=== PATIENT | male | born 1985 | race Hispanic/Latino ===

== ENCOUNTER 2020-09-26 17:30 | Emergency (ER) | payer SELFPAY ==
[2020-09-26] MEDS ORDERED: ASPIRIN 81 MG TAB CHEW PO ONE (17:45)
[2020-09-26] MEDS ORDERED: LORazepam 2 MG/ML VIAL IV PRN ×2 (17:47)
[2020-09-26] MEDS ORDERED: ONDANSETRON 4 MG/2 ML INJ IV ONE ×2 (17:48→21:46)
--- NOTE | 2020-09-26 17:54 | Emergency Department Report ---
ED Chest Pain HPI - General Stated Complaint: CHEST PAIN Time Seen by Provider: 09/26/20 17:45 Source: patient - History of Present Illness Initial Comments: Patient is 35 years old male with history of hypertension and chronic al coholism. Patient brought to the emergency room via EMS from a local rehab center for evaluation of chest pain. Patient describes chest pain as sharp, diffuse with no radiation. Patient stated that he feels anxious. He stated that he is slightly nauseated. Patient is currently treated for alcohol abuse. Patient denied any fever or chills. No shortness of breath. MD Complaint: chest pain -: This afternoon Onset: during rest Pain Location: substernal Pain Radiation: none Severity: moderate Severity scale (0 -10): 6 Quality: sharp Consistency: intermittent re: nausea - Related Data Allergies Allergy/AdvReac Type Severity Reaction Status Date / Time aspirin Allergy Anaphylaxis Verified 09/26/20 18:02 Heart Score - HEART Score History: Slightly suspicious EKG: Normal Age: < 45 Risk factors: 1-2 risk factors Troponin: < normal limit HEART Score: 1 - EKG Read Time Time EKG Completed: 17:56 EKG Read Time: 17:57 - Critical Actions Critical Actions: 0-3 pts:0.9-1.7%risk of adverse cardiac event.Candidate for discharge ED Review of Systems ROS: Stated complaint: CHEST PAIN Other details as noted in HPI Comment: All other systems reviewed and negative Constitutional: denies: chills, fever ENT: denies: throat pain Cardiovascular: chest pain. denies: palpitations Gastrointestinal: nausea. denies: abdominal pain, vomiting Musculoskeletal: denies: back pain Neurological: denies: headache, weakness, numbness, paresthesias, confusion Psychiatric: anxiety, visual hallucinations. denies: depression, auditory hallucinations, homicidal thoughts, suicidal thoughts ED Past Medical Hx - Past Medical History Hx Hypertension: Yes ED Physical Exam - General General appearance: alert, in no apparent distress - Head Head exam: Present: atraumatic, normocephalic, normal inspection - Eye Eye exam: Present: normal appearance - ENT ENT exam: Present: normal exam, normal orophraynx, mucous membranes moist - Neck Neck exam: Present: normal inspection, full ROM. Absent: tenderness, meningismus - Respiratory Respiratory exam: Present: normal lung sounds bilaterally - Cardiovascular Cardiovascular Exam: Present: regular rate, normal rhythm, normal heart sounds - GI/Abdominal GI/Abdominal exam: Present: soft, normal bowel sounds. Absent: distended, t enderness, guarding, rebound, rigid, organomegaly, mass, bruit, pulsatile mass, hernia - Extremities Exam Extremities exam: Present: normal inspection, full ROM, normal capillary refill. Absent: tenderness - Back Exam Back exam: Present: normal inspection, full ROM. Absent: CVA tenderness (R), CVA tenderness (L) - Neurological Exam Neurological exam: Present: alert, oriented X3, CN II-XII intact, normal gait, reflexes normal. Absent: motor sensory deficit - Psychiatric Psychiatric exam: Present: normal mood - Skin Skin exam: Present: warm, intact, normal color ED Course Vital Signs 09/26/20 09/26/20 09/26/20 17:51 18:01 18:15 Pulse Rate 104 H 103 H 99 H Respiratory 15 15 Rate Blood Pressure 192/84 188/89 O2 Sat by Pulse 95 96 Oximetry 09/26/20 09/26/20 09/26/20 18:31 18:45 19:01 Pulse Rate 92 H 92 H 84 Respiratory 26 H 23 22 Rate Blood Pressure 154/99 130/112 124/70 O2 Sat by Pulse 97 96 94 Oximetry 09/26/20 09/26/20 09/26/20 19:15 19:45 20:01 Pulse Rate 90 91 H 93 H Respiratory 24 21 25 H Rate Blood Pressure 131/98 151/96 146/97 O2 Sat by Pulse 94 95 94 Oximetry 09/26/20 09/26/20 09/26/20 20:45 21:01 21:15 Pulse Rate 91 H 89 88 Respiratory 27 H 21 22 Rate Blood Pressure 150/94 146/86 129/77 O2 Sat by Pulse 95 98 96 Oximetry 09/26/20 09/26/20 09/26/20 21:31 21:45 22:01 Pulse Rate 87 85 86 Respiratory 25 H 24 24 Rate Blood Pressure 124/59 141/89 142/92 O2 Sat by Pulse 95 96 97 Oximetry 09/26/20 09/26/20 09/26/20 22:45 23:01 23:31 Pulse Rate 84 83 84 Respiratory 26 H 26 H 16 Rate Blood Pressure 137/86 142/88 142/98 O2 Sat by Pulse 95 97 98 Oximetry 09/27/20 09/27/20 00:15 00:31 Pulse Rate 87 79 Respiratory 19 16 Rate Blood Pressure 142/88 142/88 O2 Sat by Pulse 94 96 Oximetry ED Medical Decision Making - Lab Data Result diagrams: 09/26/20 17:53 09/26/20 17:53 - EKG Data -: EKG Interpreted by Me EKG shows normal: sinus rhythm Rate: tachycardia - EKG Data Interpretation: no acute changes - Radiology Data Radiology results: report reviewed - Medical Decision Making Patient is 35 years old male with history of hypertension and chronic alcoholism. Patient brought to the emergency room via EMS from a local rehab center for evaluation of chest pain. Patient describes chest pain as sharp, diffuse with no radiation. Patient stated that he feels anxious. He stated that he is slightly nauseated. Patient is currently treated for alcohol abuse. Patient denied any fever or chills. No shortness of breath. EKG shows sinus tachycardia however there is no ST elevation or depression. Ch est x-ray is unremarkable. Labs reviewed and is unremarkable including a negative troponin x2. Liver enzymes slightly elevated. Patient received Ativan and Zofran in the emergency room and stated that he is feeling much better. Patient given prescription for Zofran and advised to follow-up with his primary care physician in the next 2 to 3 days and to return to the ER if he develop any new symptoms. Critical care attestation.: If time is entered above; I have spent that time in minutes in the direct care of this critically ill patient, excluding procedure time. ED Disposition Clinical Impression: Acute chest pain, Alcohol withdrawal, Nausea Disposition: [id number] PSY HOSP/PSY UNIT Is pt being admited?: No Condition: Stable Instructions: Chest Pain (ED), Nonspecific Chest Pain, Adult, Nausea and Vomiting, Adult, Alcohol Withdrawal Syndrome, [id number] Referrals: PRIMARY CARE,MD [Primary Care Provider] - 3-5 Days
[2020-09-26 18:05] LABS: Basophils # (Auto) 0.1 K/mm3 (0.0-0.1); Basophils % (Auto) 0.6 % (0.0-1.8); Eosinophils # (Auto) 0.2 K/mm3 (0.0-0.4); Eosinophils % (Auto) 1.4 % (0.0-4.3); Hematocrit 47.1 % (35.5-45.6); Hemoglobin 16.3 gm/dl (11.8-15.2); Lymphocytes # (Auto) 3.5 K/mm3 (1.2-5.4); Lymphocytes % (Auto) 29.7 % (13.4-35.0); Mean Corpuscular HGB Conc 35 % (32-34); Mean Corpuscular Volume 94 fl (84-94); Monocytes # (Auto) 1.2 K/mm3 (0.0-0.8); Monocytes % (Auto) 10.3 % (0.0-7.3); Platelet Count 214 K/mm3 (140-440); Red Blood Count 5.03 M/mm3 (3.65-5.03); Red Cell Distribution Width 14.3 % (13.2-15.2)
[2020-09-26 18:43] LABS: Blood Urea Nitrogen 12 mg/dL (9-20); Calcium 9.5 mg/dL (8.4-10.2); Hemolysis Index 22
[2020-09-26 18:48] LABS: Albumin 4.6 g/dL (3.9-5); Bilirubin,Direct 0.2 mg/dL (0-0.2)
[2020-09-26 18:49] LABS: INR 0.88 (0.87-1.13); Partial Thromboplastin Time 28.6 Sec. (24.2-36.6)
[2020-09-26 18:50] LABS: BUN/Creatinine Ratio 17
[2020-09-26] MEDS: LORazepam 2 MG/ML VIAL IV PRN ×2 (18:50→23:45)
[2020-09-26] MEDS ORDERED: ONDANSETRON 4 MG/2 ML INJ ONE (21:47)
[2020-09-27 00:45] VITALS: BP 142/88
--- NOTE | 2020-10-01 10:54 | Electrocardiograph Report ---
[facility] Test Date: 2020-09-26 Test Time: 17:56:17 Pat Name: AUSTIN MONTANA Department: Room: Gender: M [employer]: NURSE : 1985 Requested By: NACHO CHANEY Order Number: [id number] Reading MD: Carlos Dejesus Measurements Intervals [place] Rate: 104 P: 45 SD: 155 QRS: 82 QRSD: 94 T: 54 QT: 332 QTc: 437 Interpretive Statements Sinus tachycardia Probable left atrial enlargement No previous ECG available for comparison Electronically Signed On 10-01-2020 10:53:43 EDT by Carlos Dejesus
== END 2020-09-27 01:50 ==
LOC: ED 17:30
DX: R07.89 Other chest pain (principal); F10.129 Alcohol abuse with intoxication, unspecified; R11.0 Nausea; I10 Essential (primary) hypertension; Z79.899 Other long term (current) drug therapy; Y90.9 Presence of alcohol in blood, level not specified
CPT/HCPCS: 36415; 71045; 80048; 80076; 83690; 84484; 85025; 85610; 85730; 93005; 96374; 96375; 96376; 99284; J2060; J2405